=== PATIENT | male | born 1955 | race Caucasian/White ===

== ENCOUNTER → 2019-02-04 | Outpatient (CLI) | payer MEDICARE, OTHER ==
[~2019-02-04] MED LIST: ATOR20 PO; LISI5 PO
== END | disposition home or self-care (01) ==
LOC: LAB SHORT 12:13 → PLD 12:13
DX: D48.5 Neoplasm of uncertain behavior of skin (principal)
CPT/HCPCS: 88305; 88342

== ENCOUNTER → 2019-02-18 | Outpatient (CLI) | payer MEDICARE, OTHER | END | disposition home or self-care (01) | LOC: LAB SHORT 10:32 → PLD 10:32 | DX: D03.39 Melanoma in situ of other parts of face (principal); D22.39 Melanocytic nevi of other parts of face | CPT/HCPCS: 88305 ==